=== PATIENT | male | born 1970 | race American Indian/Alaskan Native ===

== ENCOUNTER 2020-05-13 15:35 | Inpatient (IN) | payer MEDICAID ==
--- NOTE | 2020-05-13 17:13 | Event Note ---
ED Screening Note Date of service: 05/13/20 Time: 17:09 ED Screening Note: 50-year-old -Martiniquais male presents to the emergency room stating he has no energy abdominal pain and urinary frequency with dark urine. Patient admits to nausea but no vomiting. Has a history of hypertension currently on no meds. Denies any fever chills. This initial assessment/diagnostic orders/clinical plan/treatment(s) is/are subject to change based on patients health status, clinical progression and re- assessment by fellow clinical providers in the ED. Further treatment and workup at subsequent clinical providers discretion. Patient/guardian urged not to elope from the ED as their condition may be serious if not clinically assessed and managed. Initial orders include:
[2020-05-13 17:37] LABS: Basophils # (Auto) 0.1 K/mm3 (0.0-0.1); Basophils % (Auto) 0.8 % (0.0-1.8); Eosinophils # (Auto) 0.1 K/mm3 (0.0-0.4); Eosinophils % (Auto) 0.9 % (0.0-4.3); Hematocrit 41.8 % (35.5-45.6); Hemoglobin 14.7 gm/dl (11.8-15.2); Lymphocytes # (Auto) 2.1 K/mm3 (1.2-5.4); Lymphocytes % (Auto) 20.2 % (13.4-35.0); Mean Corpuscular HGB Conc 35 % (32-34); Mean Corpuscular Volume 91 fl (84-94); Monocytes # (Auto) 0.6 K/mm3 (0.0-0.8); Monocytes % (Auto) 6.2 % (0.0-7.3); Platelet Count 269 K/mm3 (140-440); Red Blood Count 4.57 M/mm3 (3.65-5.03); Red Cell Distribution Width 14.6 % (13.2-15.2)
[2020-05-13 17:53] LABS: Albumin 4.1 g/dL (3.9-5); Blood Urea Nitrogen 9 mg/dL (9-20); Calcium 9.1 mg/dL (8.4-10.2); Hemolysis Index 346
[2020-05-13 17:55] LABS: BUN/Creatinine Ratio 18
[2020-05-13 17:56] LABS: Alanine Aminotransferase 528 units/L (7-56)
[2020-05-13 18:22] LABS: Amphetamine Screen,Urine Negative; Benzodiazepines Screen,Urine Negative; Cannabinoid Screen,Urine Negative; Cocaine Screen,Urine Negative; Methadone Screen,Urine Negative; Opiate Screen,Urine Negative
[2020-05-13 18:24] LABS: Bilirubin,Urine MOD (Negative); Blood,Urine NEG (Negative); Color,Urine Amber (Yellow); Mucus,Urine 1+ /HPF; Protein,Urine <15 mg/dL mg/dL (Negative); RBC,Urine < 1.0 /HPF (0.0-6.0)
[2020-05-13] MEDS ORDERED: SODIUM CHLORIDE 0.9% 1000 ML 1,000 ML IV ONE (18:25)
--- NOTE | 2020-05-13 18:32 | Emergency Department Report ---
ED Abdominal Pain HPI - General Chief Complaint: Abdominal Pain Stated Complaint: ABD PAIN PUI?: No Time Seen by Provider: 05/13/20 18:30 Source: patient Mode of arrival: Wheelchair Limitations: No Limitations - History of Present Illness Initial Comments: Patient is a 50-year-old male who presents emergency room with generalized abdominal pain. Patient states he is not been feeling well for 2 weeks. He states his pain started 2 weeks ago. Patient dates his pain is worsening. Patient states that his eyes are also turning yellow. Patient states he is fatigued. Patient states he is having frequent urination. Patient states his urine is dark. Patient complains of nausea without vomiting. Patient has a history of high blood pressure but is not on any medications. Patient denies recent foreign travel. Patient denies recent travel. Patient denies recent international travel. Patient denies exposure to the novel coronavirus. Patient denies sick contacts. Patient denies fever and chills. Patient denies cough. Patient denies diarrhea. Patient denies coming in contact with anybody with symptoms of the no susu coronavirus. MD Complaint: abdominal pain -: Sudden Location: diffuse Radiation: none Migration to: no migration Severity: severe Severity scale (0 -10): 10 Quality: stabbing Consistency: constant Improves With: rest Worsens With: movement Associated Symptoms: nausea. denies: vomiting, diarrhea, fever, chills, constipation, hematemesis, hematochezia, melena, hematuria, anorexia, syncope - Related Data Allergies Allergy/AdvReac Type Severity Reaction Status Date / Time No Known Allergies Allergy Verified 05/13/20 16:17 ED Review of Systems ROS: Stated complaint: ABD PAIN Other details as noted in HPI Constitutional: malaise. denies: chills, fever, weakness Eyes: other (Scleral icterus). denies: eye pain, eye discharge, vision change ENT: denies: ear pain, throat pain Respiratory: denies: cough, shortness of breath, wheezing Cardiovascular: denies: chest pain, palpitations Endocrine: no symptoms reported Gastrointestinal: abdominal pain, nausea. denies: vomiting, diarrhea Genitourinary: denies: urgency, dysuria Musculoskeletal: denies: back pain, joint swelling, arthralgia Skin: denies: rash, lesions Neurological: denies: headache, weakness, paresthesias Psychiatric: denies: anxiety, depression Hematological/Lymphatic: denies: easy bleeding, easy bruising ED Past Medical Hx - Past Medical History Previous Medical History?: Yes Hx Hypertension: Yes - Surgical History Past Surgical History?: Yes Additional Surgical History: back surgery - Family History Family history: no significant - Social History Smoking Status: Current Every Day Smoker Substance Use Type: None ED Physical Exam - General Limitations: No Limitations General appearance: alert, in no apparent distress - Head Head exam: Present: atraumatic, normocephalic - Eye Eye exam: Present: PERRL, scleral icterus Pupils: Present: normal accommodation - ENT ENT exam: Present: mucous membranes moist - Neck Neck exam: Present: normal inspection - Respiratory Respiratory exam: Present: normal lung sounds bilaterally. Absent: respiratory distress, wheezes - Cardiovascular Cardiovascular Exam: Present: regular rate, normal rhythm. Absent: systolic murmur, diastolic murmur, rubs, gallop - GI/Abdominal GI/Abdominal exam: Present: soft, tenderness (Generalized tenderness to palpation.), normal bowel sounds - Rectal Rectal exam: Present: deferred - Extremities Exam Extremities exam: Present: normal inspection - Back Exam Back exam: Present: normal inspection - Neurological Exam Neurological exam: Present: alert, oriented X3 - Psychiatric Psychiatric exam: Present: normal affect, normal mood - Skin Skin exam: Present: warm, dry, intact, normal color. Absent: rash ED Course Vital Signs 05/13/20 05/13/20 05/13/20 16:19 19:05 19:15 Temperature 98.8 F Pulse Rate 75 77 76 Respiratory 20 25 H 14 Rate Blood Pressure 148/88 141/82 O2 Sat by Pulse 100 99 100 Oximetry 05/13/20 05/13/20 05/13/20 19:31 19:45 20:01 Temperature Pulse Rate 74 72 67 Respiratory 17 27 H 14 Rate Blood Pressure 140/87 141/90 151/93 O2 Sat by Pulse 99 100 100 Oximetry 05/13/20 05/13/20 05/13/20 20:17 20:31 20:52 Temperature Pulse Rate 72 75 80 Respiratory 20 26 H Rate Blood Pressure 151/93 147/95 O2 Sat by Pulse 100 99 Oximetry 05/13/20 05/13/20 05/13/20 21:01 21:15 21:31 Temperature Pulse Rate 68 68 72 Respiratory 18 19 22 Rate Blood Pressure 158/97 151/98 144/93 O2 Sat by Pulse 100 100 100 Oximetry 05/13/20 05/13/20 05/13/20 21:45 22:01 22:15 Temperature Pulse Rate 72 71 76 Respiratory 21 19 19 Rate Blood Pressure 145/96 148/93 167/53 O2 Sat by Pulse 100 99 100 Oximetry 05/13/20 05/13/20 05/13/20 22:31 22:45 23:01 Temperature Pulse Rate 70 67 69 Respiratory 18 15 21 Rate Blood Pressure 146/85 137/93 135/74 O2 Sat by Pulse 100 100 100 Oximetry 05/13/20 05/13/20 23:15 23:31 Temperature Pulse Rate 74 70 Respiratory 23 23 Rate Blood Pressure 158/97 162/96 O2 Sat by Pulse Oximetry - Reevaluation(s) Reevaluation #1: Patient resting in bed. Patient denies nausea at this time. Patient states he still feels fatigued. Patient's signs patient CT is pending. 05/13/20 19:14 Reevaluation #2: I discussed all results with patient. I discussed plan of care with patient. Patient agrees with plan of care and admission. Patient to be admitted to the hospitalist service. 05/13/20 21:14 - Consultations Consultation #1: I discussed case with Dr. Champion GI. Dr. Champion wants the patient admitted to the hospital service and he will see him in the morning. 05/13/20 21:22 Consultation #2: Hospitalist consulted for admission. Hospitalist to admit patient. 05/13/20 21:28 ED Medical Decision Making - Lab Data Result diagrams: 05/13/20 17:10 05/13/20 17:10 - EKG Data -: EKG Interpreted by Ct EKG shows normal: sinus rhythm, axis, intervals, QRS complexes, ST-T waves Rate: normal - Radiology Data Radiology results: report reviewed CT ABDOMEN AND PELVIS WITH CONTRAST INDICATION / CLINICAL INFORMATION: Elevated bilirubin and LFTs, weakness. TECHNIQUE: Axial CT images were obtained through the abdomen and pelvis after 100 cc Omnipaque [address] scans at this location are performed using CT dose reduction for ALARA by means of automated exposure control. COMPARISON: None available. FINDINGS: LOWER CHEST: No significant abnormality. LIVER: No significant abnormality. GALLBLADDER: Moderately distended with a small amount of sludge versus stones seen along the gallbladder fundus without evidence of acute cholecystitis. BILE DUCTS: There is moderate intrahepatic and extra hepatic biliary ductal dilatation without visualization of a distinct obstructive stone. The common bile duct abruptly terminates along the distal third of its course approximately 1.2 cm from the ampulla. PANCREAS: A pancreatic head mass measures 4.6 x 3.7 cm on image 82 of series 2. There is mild high- grade ductal dilatation. No other significant abnormality. SPLEEN: No significant abnormality. ADRENALS: No significant abnormality. RIGHT KIDNEY / URETER: No significant abnormality. LEFT KIDNEY / URETER: No significant abnormality. STOMACH / SMALL BOWEL: No significant abnormality. COLON: No significant abnormality. APPENDIX: No significant abnormality. PERITONEUM: No free fluid. No free air. No fluid collection. LYMPH NODES: No significant adenopathy. AORTA / ARTERIES: There is mild generalized atherosclerosis without other significant abnormalities. IVC / VEINS: No significant abnormality. URINARY BLADDER: No significant abnormality. REPRODUCTIVE ORGANS: No significant abnormality. ADDITIONAL FINDINGS: None. SKELETAL SYSTEM: No acute abnormality. Mild degenerative changes are seen along the spine. IMPRESSION: 1. Pancreatic head mass with secondary moderate biliary obstruction. Pancreatic adenocarcinoma is suspected until proven otherwise. 2. Additional findings as above. - Medical Decision Making Patient is a 50-year-old male that presents emergency room with abdominal pain and fatigue and nausea without vomiting and scleral icterus. Patient says been going on for 2 weeks. Patient symptoms worsening. Patient had labs done which showed strongly abnormal bili and LFTs. Patient also found to have hyperkalemia. Patient given hyperkalemia protocol to include calcium, insulin, D50, fluids, Kayexalate. Patient had EKG which was within normal limits and no acute findings and no ST changes or T wave changes. I reviewed the EKG personally. Patient had a CT scan of the abdomen and it showed a pancreatic mass that was obstructing the common bile duct. I discussed the case with GI and GI recommends admission to the hospital service. Patient notified consistent with hyperkalemia, abnormal LFTs, obstructive hyperbilirubinemia, pancreatic mass possibly secondary to a pancreatic adenocarcinoma, abdominal pain, nausea alone. Patient admitted to the hospital service for further evaluation treatment. Critical care time documented due to the multiple reassessments, prolonged time at the bedside, interpretation of diagnostics and labs and discussion with specialist. - Differential Diagnosis Obstructive jaundice, biliary stone, abdominal pain, dehydration Critical Care Time: Yes Critical care time in (mins) excluding proc time.: 35 Critical care attestation.: If time is entered above; I have spent that time in minutes in the direct care of this critically ill patient, excluding procedure time. Critical Care Time: 35 minutes Critical care time documented due to the multiple reassessments, prolonged time at the bedside, interpretation of diagnostics and labs and consultations with specialist. ED Disposition Clinical Impression: Scleral icterus, Nausea alone, Hyperbilirubinemia, Abnormal LFTs, Hyperkalemia, Obstructive jaundice, Pancreatic mass Abdominal pain Qualifiers: Abdominal location: generalized Qualified Code(s): R10.84 - Generalized abdominal pain Fatigue Qualifiers: Fatigue type: unspecified Qualified Code(s): R53.83 - Other fatigue Disposition: DC-09 OP ADMIT IP TO THIS HOSP Is pt being admited?: Yes Does the pt Need Aspirin: No Condition: Critical Time of Disposition: 21:27
[2020-05-13 18:38] LABS: Ictotest,Urine Positive (Negative)
[2020-05-13] MEDS ORDERED: CALCIUM CHLORIDE 1,000 MG/10 ML SDV IVP ONE (18:40)
[2020-05-13] MEDS ORDERED: INSULIN REGULAR, HUMAN 100 UNITS/1 ML IV ONE (18:40)
[2020-05-13] MEDS ORDERED: DEXTROSE 50% IN WATER (25GM) 50 ML SYRINGE IV ONE (18:40)
[2020-05-13] MEDS ORDERED: SODIUM POLYSTYRENE 15 GM/60 ML ORAL LIQD PO ONE (18:40)
[2020-05-13] MEDS ORDERED: CALCIUM CHLORIDE 1,000 MG in SODIUM CHLORIDE 0.9% 100 ML IV ONE (19:00)
[2020-05-13 19:01] LABS: Albumin 4.2 g/dL (3.9-5); Bilirubin,Direct 7.6 mg/dL (0-0.2)
[2020-05-13 20:12] LABS: Hepatitis B Surface Antigen Non-Reactive (Negative); Hepatitis C Virus Antibody Non-Reactive (NonReactive)
--- NOTE | 2020-05-13 20:53 | Cat Scan Report ---
CT ABDOMEN AND PELVIS WITH CONTRAST INDICATION / CLINICAL INFORMATION: Elevated bilirubin and LFTs, weakness. TECHNIQUE: Axial CT images were obtained through the abdomen and pelvis after 100 cc Omnipaque [address] scans at this location are performed using CT dose reduction for ALARA by means of automated exposure control. COMPARISON: None available. FINDINGS: LOWER CHEST: No significant abnormality. LIVER: No significant abnormality. GALLBLADDER: Moderately distended with a small amount of sludge versus stones seen along the gallblad muna fundus without evidence of acute cholecystitis. BILE DUCTS: There is moderate intrahepatic and extra hepatic biliary ductal dilatation without visual ization of a distinct obstructive stone. The common bile duct abruptly terminates along the distal th ird of its course approximately 1.2 cm from the ampulla. PANCREAS: A pancreatic head mass measures 4.6 x 3.7 cm on image 82 of series 2. There is mild high-gr joesph ductal dilatation. No other significant abnormality. SPLEEN: No significant abnormality. ADRENALS: No significant abnormality. RIGHT KIDNEY / URETER: No significant abnormality. LEFT KIDNEY / URETER: No significant abnormality. STOMACH / SMALL BOWEL: No significant abnormality. COLON: No significant abnormality. APPENDIX: No significant abnormality. PERITONEUM: No free fluid. No free air. No fluid collection. LYMPH NODES: No significant adenopathy. AORTA / ARTERIES: There is mild generalized atherosclerosis without other significant abnormalities. IVC / VEINS: No significant abnormality. URINARY BLADDER: No significant abnormality. REPRODUCTIVE ORGANS: No significant abnormality. ADDITIONAL FINDINGS: None. SKELETAL SYSTEM: No acute abnormality. Mild degenerative changes are seen along the spine. IMPRESSION: 1. Pancreatic head mass with secondary moderate biliary obstruction. Pancreatic adenocarcinoma is tc pected until proven otherwise. 2. Additional findings as above. Signer Name: Tito Wolfe MD Signed: 05/13/2020 8:48 PM Workstation Name: [id number]
[2020-05-13] MEDS ORDERED: ACETAMINOPHEN 325 MG TAB PO PRN (22:22)
[2020-05-13] MEDS ORDERED: MAGNESIUM HYDROXIDE (MOM) ORAL LIQD UDC PO PRN (22:22)
--- NOTE | 2020-05-13 22:31 | History and Physical Report ---
History of Present Illness Date of examination: 05/13/20 Date of admission: 05/13/20 21:39 Chief complaint: Yellowness of the eyes Abdominal pain History of present illness: 50-year-old male with significant history of hypertension presenting to the emergency room today complaining of generalized abdominal pain. Symptoms has been ongoing for about 2 weeks. He denies any fever or chills. He has had some nausea but no vomiting. No diarrhea or constipation. He has had frequent urination but denies any dysuria or hematuria. He however indicates that his urine has been darker in color. Patient denies any sick contacts and no recent travel. Denies any contact with anyone with COVID-19. Work-up in the emergency room today reveals elevated liver enzymes, h yperbilirubinemia and hyperkalemia on the lab test. CT of the abdomen and pelvis reveals:1. Pancreatic head mass with secondary moderate biliary obstruction. Pancreatic adenocarcinoma is suspected until proven otherwise. Pick Up Operator has been consulted by the ER physician. Patient be admitted with abdominal pain with underlying pancreatic mass with jaundice. Past History Past Medical History: hypertension Past Surgical History: Other (Back surgery in the past) Social history: smoking (Current daily smoker. Smokes about a pack of cigarette daily), alcohol abuse (Drinks alcohol occasionally) Family history: no significant family history Medications and Allergies Allergies Allergy/AdvReac Type Severity Reaction Status Date / Time No Known Allergies Allergy Verified 05/13/20 16:17 Active Meds: Active Medications Acetaminophen (Acetaminophen 325 Mg Tab) 650 mg PO Q4H PRN PRN Reason: Pain MILD(1-3)/Fever >100.5/LORA Ondansetron HCl (Ondansetron 4 Mg/2 Ml Inj) 4 mg IV Q8H PRN PRN Reason: Nausea And Vomiting Sodium Chloride (Sodium Chloride 0.9% 10 Ml Flush Syringe) 10 ml IV BID ALEX Review of Systems Constitutional: no weight loss, no weight gain, no fever, no night sweats, no fatigue, no weakness, no malaise Ears, nose, mouth and throat: no nasal congestion, no sore throat Cardiovascular: no chest pain, no palpitations Respiratory: no cough, no shortness of breath Gastrointestinal: abdominal pain, nausea, jaundice, no vomiting, no diarrhea, no change in bowel habits, no loss of appetite, no early satiety Genitourinary Male: urinary frequency, other (Dark-colored urine), no dysuria, no hematuria, no nocturia Musculoskeletal: no neck pain, no low back pain Integumentary: no rash, no pruritis Neurological: no headaches, no confusion Psychiatric: no anxiety, no depression Exam - Constitutional Vitals: Temp Pulse Resp BP Pulse Ox 98.8 F 72 21 145/96 100 05/13/20 16:19 05/13/20 21:45 05/13/20 21:45 05/13/20 21:45 05/13/20 21:45 General appearance: Present: no acute distress, well-nourished - EENT Eyes: Present: PERRL, EOM intact, scleral icterus ENT: hearing intact, clear oral mucosa, dentition normal - Neck Neck: Present: supple, normal ROM - Respiratory Respiratory effort: normal Respiratory: bilateral: CTA - Cardiovascular Rhythm: regular Heart Sounds: Present: S1 & S2. Absent: gallop, systolic murmur, diastolic murmur, rub - Extremities Extremities: no ischemia, pulses intact, pulses symmetrical, No edema, normal temperature, normal color, Full ROM Peripheral Pulses: within normal limits - Abdominal General gastrointestinal: Present: soft, tender (Right upper and right lower quadrant tenderness, no guarding, no rebound tenderness.), non-distended, normal bowel sounds. Absent: mass - Integumentary Integumentary: Present: clear, warm, dry, normal turgor. Absent: rash - Musculoskeletal Musculoskeletal: strength equal bilaterally - Psychiatric Psychiatric: appropriate mood/affect, intact judgment & insight, memory intact, cooperative - Neurologic Neurologic: CNII-XII intact, no focal deficits, moves all extremities Results - Labs CBC & Chem 7: 05/13/20 17:10 05/13/20 17:10 Labs: Abnormal lab results 05/13/20 05/13/20 05/13/20 Range/Units 17:10 17:10 18:40 MCHC 35 H (32-34) % Seg Neutrophils % 71.9 H (40.0-70.0) % Sodium 129 L (137-145) mmol/L Potassium 6.0 H (3.6-5.0) mmol/L Chloride 97.0 L (98-107) mmol/L Creatinine 0.5 L (0.8-1.3) mg/dL Glucose 109 H (75-100) mg/dL Total Bilirubin 13.60 H 13.20 H (0.1-1.2) mg/dL Direct Bilirubin 7.6 H (0-0.2) mg/dL AST 221 H 218 H (5-40) units/L ALT 528 H 502 H (7-56) units/L Alkaline Phosphatase 358 H 360 H (35-129) units/L Total Creatine Kinase 342 H (55-170) units/L Assessment and Plan - Patient Problems (1) Abdominal pain Current Visit: Yes Status: Acute Qualifiers: Abdominal location: generalized Qualified Code(s): R10.84 - Generalized abdominal pain Plan to address problem: Possibly secondary to pancreatic mass. Patient commenced on IV analgesic medication. He will be made n.p.o. (2) Abnormal LFTs Current Visit: Yes Status: Acute Plan to address problem: Possibly secondary to obstruction by the pancreatic mass. Will monitor liver enzymes. (3) Hyperbilirubinemia Current Visit: Yes Status: Acute Plan to address problem: Secondary to the underlying obstruction by the pancreatic mass. We will continue to monitor bilirubin level. We await further evaluation by gastroenterology. (4) Hyperkalemia Current Visit: Yes Status: Acute Plan to address problem: Patient has been given insulin and glucose, calcium gluconate, Kayexalate. Will monitor potassium level and will also monitor EKG. (5) Obstructive jaundice Current Visit: Yes Status: Acute Plan to address problem: Secondary to the pancreatic mass. (6) DVT prophylaxis Current Visit: Yes Status: Acute Plan to address problem: Patient placed on sequential compression device. (7) Full code status Current Visit: Yes Status: Acute Plan to address problem: Patient is a full code.
[2020-05-14] MEDS: MORPHINE 2 MG/1 ML INJ IV PRN ×2 (01:20→20:40)
[2020-05-14] MEDS: SODIUM CHLORIDE 0.9% 1000 ML 1,000 ML IV SCH (01:21)
[2020-05-14 05:52] LABS: Basophils % (Auto) 0.4 % (0.0-1.8); Eosinophils # (Auto) 0.1 K/mm3 (0.0-0.4); Eosinophils % (Auto) 0.8 % (0.0-4.3); Hematocrit 36.6 % (35.5-45.6); Hemoglobin 12.8 gm/dl (11.8-15.2); Lymphocytes # (Auto) 1.8 K/mm3 (1.2-5.4); Lymphocytes % (Auto) 26.8 % (13.4-35.0); Mean Corpuscular HGB Conc 35 % (32-34); Mean Corpuscular Volume 91 fl (84-94); Monocytes # (Auto) 0.5 K/mm3 (0.0-0.8); Monocytes % (Auto) 8.2 % (0.0-7.3); Platelet Count 223 K/mm3 (140-440); Red Blood Count 4.02 M/mm3 (3.65-5.03); Red Cell Distribution Width 14.6 % (13.2-15.2)
[2020-05-14 06:06] LABS: INR 1.02 (0.87-1.13)
[2020-05-14 06:09] LABS: Blood Urea Nitrogen 7 mg/dL (9-20); Calcium 8.5 mg/dL (8.4-10.2); Hemolysis Index 0
[2020-05-14 06:11] LABS: Albumin 3.4 g/dL (3.9-5)
[2020-05-14 06:20] LABS: BUN/Creatinine Ratio 14
[2020-05-14] MEDS: ONDANSETRON 4 MG/2 ML INJ IV PRN (10:21)
--- NOTE | 2020-05-14 13:49 | Progress Note ---
Assessment and Plan Assessment and Plan - Patient Problems (1) Pancreatic mass Current Visit: Yes Status: Acute Qualifiers: Abdominal location: generalized Qualified Code(s): R10.84 - Generalized abdominal pain Plan to address problem: Possibly secondary to pancreatic mass. Patient commenced on IV analgesic medication. He will be made n.p.o. (2) Abnormal LFTs Current Visit: Yes Status: Acute Plan to address problem: Possibly secondary to obstruction by the pancreatic mass. Will monitor liver enzymes. (3) Hyperbilirubinemia Current Visit: Yes Status: Acute Plan to address problem: Secondary to the underlying obstruction by the pancreatic mass. We will continue to monitor bilirubin level. We await further evaluation by gastroenterology. (4) Hyperkalemia Current Visit: Yes Status: Acute Plan to address problem: Patient has been given insulin and glucose, calcium gluconate, Kayexalate. Will monitor potassium level and will also monitor EKG. (5) Obstructive jaundice Current Visit: Yes Status: Acute Plan to address problem: Secondary to the pancreatic mass. (6) DVT prophylaxis Current Visit: Yes Status: Acute Plan to address problem: Patient placed on sequential compression device. (7) Full code status Current Visit: Yes Status: Acute Plan to address problem: Patient is a full code. Subjective Date of service: 05/14/20 Principal diagnosis: Pancreatic mass, obstructive jaundice Interval history: 50-year-old male with significant history of hypertension presenting to the em ergency room today complaining of generalized abdominal pain. Symptoms has been ongoing for about 2 weeks. He denies any fever or chills. He has had some nausea but no vomiting. No diarrhea or constipation. He has had frequent urination but denies any dysuria or hematuria. He however indicates that his urine has been darker in color. Patient denies any sick contacts and no recent travel. Denies any contact with anyone with COVID-19. Work-up in the emergency room today reveals elevated liver enzymes, hyperbilirubinemia and hyperkalemia on the lab test. CT of the abdomen and pelvis reveals:1. Pancreatic head mass with secondary moderate biliary obstruction. Pancreatic adenocarcinoma is suspected until proven otherwise. Wirer Helper has been consulted by the ER physician. Patient be admitted with abdominal pain with underlying pancreatic mass with jaundice. Day #2 Pancreatic mass Obstructive jaundice GI consult Objective - Constitutional Vitals: Vital Signs - 12hr 05/14/20 04:59 Temperature 99.1 F Pulse Rate 66 Respiratory 20 Rate Blood Pressure 121/77 O2 Sat by Pulse 97 Oximetry General appearance: Present: no acute distress, well-nourished - EENT Eyes: PERRL, EOM intact ENT: hearing intact, clear oral mucosa Ears: bilateral: normal - Neck Neck: supple, normal ROM - Respiratory Respiratory effort: normal Respiratory: bilateral: CTA - Breasts Breasts: normal - Cardiovascular Heart rate: 78 Rhythm: regular Heart Sounds: Present: S1 & S2. Absent: gallop, rub Extremities: pulses intact, No edema, normal color, Full ROM - Gastrointestinal General gastrointestinal: Present: soft, non-tender, non-distended, normal bowel sounds - Genitourinary Male genitourinary: normal - Integumentary Integumentary: clear, warm, dry - Musculoskeletal Musculoskeletal: 1, strength equal bilaterally - Neurologic Neurologic: moves all extremities - Psychiatric Psychiatric: memory intact, appropriate mood/affect, intact judgment & insight - Labs CBC & Chem 7: 05/16/20 06:00 05/16/20 06:00 Labs: Abnormal lab results 05/13/20 05/13/20 05/13/20 Range/Units 17:10 17:10 18:40 MCHC 35 H (32-34) % Sandoval % (Auto) (0.0-7.3) % Seg Neutrophils % 71.9 H (40.0-70.0) % Sodium 129 L (137-145) mmol/L Potassium 6.0 H (3.6-5.0) mmol/L Chloride 97.0 L (98-107) mmol/L BUN (9-20) mg/dL Creatinine 0.5 L (0.8-1.3) mg/dL Glucose 109 H (75-100) mg/dL Total Bilirubin 13.60 H 13.20 H (0.1-1.2) mg/dL Direct Bilirubin 7.6 H (0-0.2) mg/dL AST 221 H 218 H (5-40) units/L ALT 528 H 502 H (7-56) units/L Alkaline Phosphatase 358 H 360 H (35-129) units/L Total Creatine Kinase 342 H (55-170) units/L Albumin (3.9-5) g/dL 03/06/21 03/06/21 03/06/21 Range/Units 04:48 04:48 04:48 MCHC 35 H (32-34) % Sandoval % (Auto) 8.2 H (0.0-7.3) % Seg Neutrophils % (40.0-70.0) % Sodium 136 L D (137-145) mmol/L Potassium (3.6-5.0) mmol/L Chloride (98-107) mmol/L BUN 7 L (9-20) mg/dL Creatinine 0.5 L (0.8-1.3) mg/dL Glucose 107 H (75-100) mg/dL Total Bilirubin 10.80 H (0.1-1.2) mg/dL Direct Bilirubin 8.0 H (0-0.2) mg/dL AST 161 H (5-40) units/L ALT 400 H (7-56) units/L Alkaline Phosphatase 293 H (35-129) units/L Total Creatine Kinase (55-170) units/L Albumin 3.4 L (3.9-5) g/dL
--- NOTE | 2020-05-14 16:18 | Consultation ---
History of Present Illness - Reason for Consult Consult date: 05/14/20 Obstructive jaundice Requesting physician: RHINA MAYA - History of Present Illness 50 yo BM on whom I am requested to consult by Dr. Maya for obstructive jaundice with a pancreatic head mass noted on CT. Pt notes 2 wk hx of abd discomfort with epigastric and bilateral pain, 5 day hx of jaundice, and 3 day hx of MARILEE. No N/V, F/C/NS. States he lost 10# over the last month. No known hx of liver disease. He smokes 1 ppd since age 15. No family hx of pancreatic cancer. No CP or SOB. Meds reviewed. Past History Past Medical History: hypertension Past Surgical History: Other (Back and neck surgery in the past) Social history: smoking (Current daily smoker. 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 States he was approved for Disability 05/10/20.) Family history: no significant family history Medications and Allergies Allergies Allergy/AdvReac Type Severity Reaction Status Date / Time No Known Allergies Allergy Verified 05/13/20 16:17 Active Meds: Active Medications Acetaminophen (Acetaminophen 325 Mg Tab) 650 mg PO Q4H PRN PRN Reason: Pain MILD(1-3)/Fever >100.5/LORA Sodium Chloride (Nacl 0.9% 1000 Ml) 1,000 mls @ 125 mls/hr IV DIRECT ALEX Last Admin: 05/14/20 01:21 Dose: 125 mls/hr Documented by: Magnesium Hydroxide (Magnesium Hydroxide (Mom) Oral Liqd Udc) 30 ml PO Q4H PRN PRN Reason: Constipation Morphine Sulfate (Morphine 2 Mg/1 Ml Inj) 2 mg IV Q4H PRN PRN Reason: Pain, Moderate (4-6) Last Admin: 05/14/20 01:20 Dose: 2 mg Documented by: Ondansetron HCl (Ondansetron 4 Mg/2 Ml Inj) 4 mg IV Q8H PRN PRN Reason: Nausea And Vomiting Last Admin: 05/14/20 10:21 Dose: 4 mg Documented by: Sodium Chloride (Sodium Chloride 0.9% 10 Ml Flush Syringe) 10 ml IV BID ALEX Last Admin: 05/14/20 14:12 Dose: 10 ml Documented by: Sodium Chloride (Sodium Chloride 0.9% 10 Ml Flush Syringe) 10 ml IV PRN PRN PRN Reason: LINE FLUSH Review of Systems All systems: negative (as noted in HPI) Exam - Constitutional Vitals: Temp Pulse Resp BP Pulse Ox 98.5 F 65 22 126/84 98 05/14/20 11:58 05/14/20 11:58 05/14/20 11:58 05/14/20 11:58 05/14/20 11:58 General appearance: Present: no acute distress - EENT Eyes: Present: PERRL, EOM intact, scleral icterus ENT: hearing intact - Respiratory Respiratory effort: normal Respiratory: bilateral: CTA - Cardiovascular Rhythm: regular Heart Sounds: Present: S1 & S2 - Extremities Extremities: No edema - Abdominal General gastrointestinal: Present: soft, tender (Mild epigastric) Results - Labs CBC & Chem 7: 05/14/20 04:48 05/14/20 04:48 Labs: Abnormal lab results 05/13/20 05/13/20 05/13/20 Range/Units 17:10 17:10 18:40 MCHC 35 H (32-34) % Dukes % (Auto) (0.0-7.3) % Seg Neutrophils % 71.9 H (40.0-70.0) % Sodium 129 L (137-145) mmol/L Potassium 6.0 H (3.6-5.0) mmol/L Chloride 97.0 L (98-107) mmol/L BUN (9-20) mg/dL Creatinine 0.5 L (0.8-1.3) mg/dL Glucose 109 H (75-100) mg/dL Total Bilirubin 13.60 H 13.20 H (0.1-1.2) mg/dL Direct Bilirubin 7.6 H (0-0.2) mg/dL AST 221 H 218 H (5-40) units/L ALT 528 H 502 H (7-56) units/L Alkaline Phosphatase 358 H 360 H (35-129) units/L Total Creatine Kinase 342 H (55-170) units/L Albumin (3.9-5) g/dL 05/14/20 05/14/20 05/14/20 Range/Units 04:48 04:48 04:48 MCHC 35 H (32-34) % Dukes % (Auto) 8.2 H (0.0-7.3) % Seg Neutrophils % (40.0-70.0) % Sodium 136 L D (137-145) mmol/L Potassium (3.6-5.0) mmol/L Chloride (98-107) mmol/L BUN 7 L (9-20) mg/dL Creatinine 0.5 L (0.8-1.3) mg/dL Glucose 107 H (75-100) mg/dL Total Bilirubin 10.80 H (0.1-1.2) mg/dL Direct Bilirubin 8.0 H (0-0.2) mg/dL AST 161 H (5-40) units/L ALT 400 H (7-56) units/L Alkaline Phosphatase 293 H (35-129) units/L Total Creatine Kinase (55-170) units/L Albumin 3.4 L (3.9-5) g/dL - Imaging and Cardiology CT scan - abdomen: report reviewed (4.6x3.7 cm mass in HOP with proximal biliary dilation) Assessment and Plan 1. Pancreatic head mass with obstructive jaundice - c/w pancreatic neoplasm. Discussed extensively with pt. - will check CA19-9 - ERCP with stenting on 05/16/20 - then, referral for EUS and possible Whipple if appropriate, based on biopsies
[2020-05-15] MEDS: ONDANSETRON 4 MG/2 ML INJ IV PRN ×4 (03:13→21:18)
[2020-05-15] MEDS: SODIUM CHLORIDE 0.9% 1000 ML 1,000 ML IV SCH (09:16)
[2020-05-15] MEDS: MORPHINE 2 MG/1 ML INJ IV PRN ×2 (09:16→12:32)
--- NOTE | 2020-05-15 11:31 | Progress Note ---
Assessment and Plan 1. Pancreatic head mass with obstructive jaundice - c/w pancreatic neoplasm. Stable. Previously discussed extensively with pt. - will check CA19-9 - ERCP with stenting on 05/16/20 - then, referral for EUS and possible Whipple if appropriate, based on biopsies Subjective Date of service: 05/15/20 Interval history: Pt doing well. Has mild nausea. No significant pain. Objective - Constitutional Vitals: Vital Signs - 12hr 05/14/20 05/15/20 05/15/20 23:34 05:27 08:24 Temperature 98.0 F 98.0 F Pulse Rate 66 62 Respiratory 18 18 Rate Blood Pressure 137/85 123/83 O2 Sat by Pulse 97 97 99 Oximetry General appearance: Present: no acute distress - EENT Eyes: PERRL, EOM intact, scleral icterus ENT: hearing intact - Respiratory Respiratory effort: normal - Gastrointestinal General gastrointestinal: Present: soft, tender (Mild) - Labs CBC & Chem 7: 05/14/20 04:48 05/14/20 04:48 Medications & Allergies - Medications Allergies/Adverse Reactions: Allergies No Known Allergies Allergy (Verified 05/13/20 16:17) Active Medications: Generic Name Dose Route Start Last Admin Trade Name Freq PRN Reason Stop Dose Admin Acetaminophen 650 mg 05/13/20 22:22 Acetaminophen 325 Mg Tab PO Q4H PRN Pain MILD(1-3)/Fever >100.5/LORA Sodium Chloride 1,000 mls @ 125 mls/hr 05/13/20 22:30 05/15/20 09:16 Nacl 0.9% 1000 Ml IV 125 mls/hr DIRECT ALEX Administration Magnesium Hydroxide 30 ml 05/13/20 22:22 Magnesium Hydroxide (Mom) Oral Liqd Udc PO Q4H PRN Constipation Morphine Sulfate 2 mg 05/13/20 22:22 05/15/20 09:16 Morphine 2 Mg/1 Ml Inj IV 2 mg Q4H PRN Administration Pain, Moderate (4-6) Ondansetron HCl 4 mg 05/13/20 22:22 05/15/20 03:13 Ondansetron 4 Mg/2 Ml Inj IV 4 mg Q8H PRN Administration Nausea And Vomiting Sodium Chloride 10 ml 05/14/20 10:00 05/14/20 21:20 Sodium Chloride 0.9% 10 Ml Flush Syringe IV 10 ml BID ALEX Administration Sodium Chloride 10 ml 05/13/20 22:22 Sodium Chloride 0.9% 10 Ml Flush Syringe IV PRN PRN LINE FLUSH
--- NOTE | 2020-05-15 13:35 | Progress Note ---
Assessment and Plan Assessment and Plan - Patient Problems (1) Obstructive jaundice Current Visit: Yes Status: Acute Plan to address problem: Secondary to the pancreatic mass. ERCP tomorrow if Covid test is negative (2) Abnormal LFTs Current Visit: Yes Status: Acute Plan to address problem: Possibly secondary to obstruction by the pancreatic mass. Will monitor liver enzymes. (3) Hyperbilirubinemia Current Visit: Yes Status: Acute Plan to address problem: Secondary to the underlying obstruction by the pancreatic mass. We will continue to monitor bilirubin level. We await further evaluation by gastroenterology. (4) Hyperkalemia Current Visit: Yes Status: Acute Plan to address problem: Patient has been given insulin and glucose, calcium gluconate, Kayexalate. Will monitor potassium level and will also monitor EKG. (5) DVT prophylaxis Current Visit: Yes Status: Acute Plan to address problem: Patient placed on sequential compression device. (6) Full code status Current Visit: Yes Status: Acute Plan to address problem: Patient is a full code. Subjective Date of service: 05/15/20 Principal diagnosis: Obstructive jaundice, pancreatic mass Interval history: 50-year-old male with significant history of hypertension presenting to the emergency room today complaining of generalized abdominal pain. Symptoms has been ongoing for about 2 weeks. He denies any fever or chills. He has had some nausea but no vomiting. No diarrhea or constipation. He has had frequent urination but denies any dysuria or hematuria. He however indicates that his urine has been darker in color. Patient denies any sick contacts and no recent travel. Denies any contact with anyone with COVID-19. Work-up in the emergency room today reveals elevated liver enzymes, hyperbilirubinemia and hyperkalemia on the lab test. CT of the abdomen and pelvis reveals:1. Pancreatic head mass with secondary mode rate biliary obstruction. Pancreatic adenocarcinoma is suspected until proven otherwise. Toggler has been consulted by the ER physician. Patient be admitted with abdominal pain with underlying pancreatic mass with jaundice. 05/15/2020 Patient for ERCP on 05/16/2020 to relieve obstructive jaundice Objective - Constitutional Vitals: Vital Signs - 12hr 05/15/20 05/15/20 05:27 08:24 Temperature 98.0 F Pulse Rate 62 Respiratory 18 Rate Blood Pressure 123/83 O2 Sat by Pulse 97 99 Oximetry General appearance: Present: no acute distress, well-nourished - EENT Eyes: PERRL, EOM intact, scleral icterus ENT: hearing intact, clear oral mucosa Ears: bilateral: normal - Neck Neck: supple, normal ROM - Respiratory Respiratory effort: normal Respiratory: bilateral: CTA - Breasts Breasts: normal - Cardiovascular Rhythm: regular Heart Sounds: Present: S1 & S2. Absent: gallop, rub Extremities: pulses intact, No edema, normal color, Full ROM - Gastrointestinal General gastrointestinal: Present: soft, non-tender, non-distended, normal bowel sounds - Genitourinary Male genitourinary: normal - Integumentary Integumentary: clear, warm, dry - Musculoskeletal Musculoskeletal: 1, strength equal bilaterally - Neurologic Neurologic: moves all extremities - Psychiatric Psychiatric: memory intact, appropriate mood/affect, intact judgment & insight - Labs CBC & Chem 7: 05/16/20 06:00 05/16/20 06:00
[2020-05-15] MEDS: HYDROmorphone 1 MG/1 ML INJ IV PRN ×2 (16:05→21:17)
[2020-05-16] MEDS: SODIUM CHLORIDE 0.9% 1000 ML 1,000 ML IV SCH ×3 (01:46→20:37)
[2020-05-16 06:25] LABS: Eosinophils % (Auto) 1.6 % (0.0-4.3); Hematocrit 35.2 % (35.5-45.6); Hemoglobin 12.3 gm/dl (11.8-15.2); Lymphocytes % (Auto) 25.8 % (13.4-35.0); Mean Corpuscular HGB Conc 35 % (32-34); Mean Corpuscular Volume 90 fl (84-94); Monocytes % (Auto) 7.2 % (0.0-7.3); Platelet Count 228 K/mm3 (140-440); Red Cell Distribution Width 15.3 % (13.2-15.2)
[2020-05-16 06:26] LABS: Basophils % (Auto) 0.3 % (0.0-1.8); Eosinophils # (Auto) 0.1 K/mm3 (0.0-0.4); Monocytes # (Auto) 0.3 K/mm3 (0.0-0.8)
[2020-05-16 06:45] LABS: Alanine Aminotransferase 316 units/L (7-56); Albumin 3.3 g/dL (3.9-5); Blood Urea Nitrogen 7 mg/dL (9-20); Calcium 8.5 mg/dL (8.4-10.2); Hemolysis Index 0
[2020-05-16 06:47] LABS: BUN/Creatinine Ratio 10
--- NOTE | 2020-05-16 10:44 | Anesthesia Day of Surgery ---
Anesthesia Day of Surgery - Day of Surgery Patient Examined: Yes Patient H&P Reviewed: Yes Patient is NPO: Yes
--- NOTE | 2020-05-16 10:46 | Anesthesia Consultation ---
Anesthesia Consult and Med Hx Date of service: 05/16/20 - Airway Anesthetic Teeth Evaluation: Chipped, Crowns ROM Head & Neck: Adequate Mental/Hyoid Distance: Adequate Mallampati Class: Class II Intubation Access Assessment: Good - Pre-Operative Health Status ASA Pre-Surgery Classification: ASA3 Proposed Anesthetic Plan: MAC - Pulmonary Hx Smoking: Yes Hx Asthma: No Hx Respiratory Symptoms: No (+2FS) COPD: No Hx Pneumonia: No - Cardiovascular System Hx Hypertension: Yes - Gastrointestinal Hx Gastroesophageal Reflux Disease: No (Pancreatic mass-obstructing) - Endocrine Hx End Stage Renal Disease: No Hx Liver Disease: Yes (From obstruction) Hx Non-Insulin Dependent Diabetes: Yes - Hematic Hx Sickle Cell Disease: No - Other Systems Hx Alcohol Use: Yes
[2020-05-16] MEDS ORDERED: LIDOCAINE MPF (2%) 20 MG/1 ML VIAL 5 ML ONE (11:35)
[2020-05-16] MEDS ORDERED: ONDANSETRON 4 MG/2 ML INJ ONE (11:35)
[2020-05-16] MEDS ORDERED: propofoL 200 MG/20 ML VIAL IV ONE ×3 (11:35→12:45)
[2020-05-16] MEDS ORDERED: HYDROmorphone 1 MG/1 ML INJ ONE (11:35)
[2020-05-16] MEDS ORDERED: SODIUM CHLORIDE 0.9% 100 ML ONE (11:56)
[2020-05-16] MEDS ORDERED: SODIUM CHLORIDE 0.9% 1000 ML 1,000 ML IV SCH (12:00)
[2020-05-16] MEDS ORDERED: KETAMINE/STERILE WATER 50 MG/ML SYRINGE ONE (12:45)
--- NOTE | 2020-05-16 13:10 | Post Operative Note ---
Pre-op diagnosis: Obstructive jaudice, pancreatic head mass Post-op diagnosis: other (Biliary and pancreatic duct stricture in HOP, with proximal dilation of CBD.) Findings: 1. ~ 2-3 cm stricture of intrapancreatic CBD with proximal dilation. Sphinctertomy done and 10Fr, 5cm biliary stent placed. 2. Stricture in pancreatic duct in HOP, with normal duct in body. 3. Normal major papilla. Procedure: ERCP with sphincterotomy and stent placement Anesthesia: MAC Surgeon: ANJALI CHISHOLM Estimated blood loss: minimal Pathology: none Condition: stable Disposition: floor (If stable, can discharge home with outpatient Oncology follow up and GI follow up. No ASA/NSAIDs x 2 wks.)
--- NOTE | 2020-05-16 13:20 | Operative Report ---
PROCEDURE: ERCP with sphincterotomy and stent placement. SEDATION: MAC by Anesthesia. PREOPERATIVE DIAGNOSIS: Obstructive jaundice and pancreatic head mass. POSTOPERATIVE DIAGNOSIS: Obstructive jaundice and pancreatic head mass. SEDATION: MAC by Anesthesia. HISTORY: The patient is a 50-year-old man, who comes in with a 2-week history of abdominal discomfort and a 5-day history of jaundice. CT shows mass in the head of the pancreas with biliary obstruction. DESCRIPTION OF PROCEDURE: Indications, risks, and benefits were explained and consent was obtained. The patient was placed in left lateral decubitus position and sedated. Endoscope was passed through the mouth and oropharynx into the descending duodenum. Selective cannulation of the pancreatic duct and then of the bile duct was achieved using the fusion sphincterotome and guidewire. FINDINGS: 1. Normal appearing major papilla. 2. Pancreatic duct shows stricturing in the head of the pancreas with normal duct starting from the neck through the body. 3. A 2-3 cm biliary stricture in the intrapancreatic portion of the common bile duct with proximal duct dilation to approximately 12 mm. An 8 mm sphincterotomy was performed. A 10-Setswana 5 cm long biliary stent was then placed across the stricture in good position with good bile flow noted. The patient tolerated the procedure well without immediate complications. ESTIMATED BLOOD LOSS: Minimal. IMPRESSION: 1. Pancreatic head mass with stricturing of the common bile duct and the pancreatic duct, consistent with extrinsic compression. 2. Sphincterotomy done and stent placed. RECOMMENDATIONS: 1. Monitor for complications. 4. Follow up on CA 19-9 level. 5. The patient will need referral to Surgical Oncology for endoscopic ultrasound for staging and subsequent chemotherapy if appropriate and hopefully a Whipple resection. JOB# [id number] HRC/NTS
[2020-05-16] MEDS: ONDANSETRON 4 MG/2 ML INJ IV PRN ×2 (14:25→20:12)
--- NOTE | 2020-05-16 14:25 | Fluoroscopy Report ---
ERCP biliary pancreatic ducts HISTORY: Obstructive jaundice COMPARISON: CT abdomen pelvis performed 05/13/2020. IMPRESSION: 1.6 minutes of fluoroscopy time was provided by radiology during ERCP by gastroenterology . 5 fluoroscopic images are presented demonstrating placement of a common bile duct stent. Please cor relate with the procedural report as needed. Signer Name: Surjit Oconnor Jr, MD Signed: 05/16/2020 2:20 PM Workstation Name: [id number]
[2020-05-16] MEDS: HYDROmorphone 1 MG/1 ML INJ IV PRN ×2 (14:50→20:11)
--- NOTE | 2020-05-16 17:13 | Post Anesthesia Evaluation ---
- Post Anesthesia Evaluation Patient Participated: Yes Airway Patent: Yes Stable Respiratory Function: Yes Nausea/Vomiting: No Temp > 96.8F: Yes Pain Manageable: Yes Adequeate Hydration: Yes Anesthesia Complications: No Block Receding Appropriately: Not Applicable Patient on Ventilator: No
[2020-05-17] MEDS: SODIUM CHLORIDE 0.9% 1000 ML 1,000 ML IV SCH (04:06)
--- NOTE | 2020-05-17 07:10 | Progress Note ---
Assessment and Plan Assessment and Plan - Patient Problems (1) Obstructive jaundice Current Visit: Yes Status: Acute Plan to address problem: Secondary to the pancreatic mass. ERCP done and stent placed Postprocedure patient feels better Clear liquids started Patient can be discharged tomorrow morning (2) Abnormal LFTs Current Visit: Yes Status: Acute Plan to address problem: Possibly secondary to obstruction by the pancreatic mass. Will monitor liver enzymes. Should be improving after the ERCP CMP ordered (3) Hyperbilirubinemia Current Visit: Yes Status: Acute Plan to address problem: Secondary to the underlying obstruction by the pancreatic mass. We will continue to monitor bilirubin level. We await further evaluation by gastroenterology. Should improve with the ERCP Check CMP (4) Hyperkalemia Current Visit: Yes Status: Acute Plan to address problem: Patient has been given insulin and glucose, calcium gluconate, Kayexalate. Will monitor potassium level and will also monitor EKG. Improved (5) DVT prophylaxis Current Visit: Yes Status: Acute Plan to address problem: Patient placed on sequential compression device. (6) Full code status Current Visit: Yes Status: Acute Plan to address problem: Patient is a full code. Subjective Date of service: 05/16/20 Principal diagnosis: Obstructive jaundice Interval history: 50-year-old male with significant history of hypertension presenting to the emergency room today complaining of generalized abdominal pain. Symptoms has been ongoing for about 2 weeks. He denies any fever or chills. He has had some nausea but no vomiting. No diarrhea or constipation. He has had frequent urination but denies any dysuria or hematuria. He however indicates that his urine has been darker in color. Patient denies any sick contacts and no recent travel. Denies any contact with anyone with COVID-19. Work-up in the emergency room today reveals elevated liver enzymes, hyperbilirubinemia and hyperkalemia on the lab test. CT of the abdomen and pelvis reveals:1. Pancreatic head mass with secondary moderate biliary obstruction. Pancreatic adenocarcinoma is suspected until proven otherwise. [employer] Room Operator has been consulted by the ER physician. Patient be admitted with abdominal pain with underlying pancreatic mass with jaundice. 05/16/2020 Patient had ERCP and stent placement for relieving the obstructive jaundice Patient has pancreatic mass Patient can be discharged tomorrow Post ERCP procedure patient doing well has slight discomfort--abdominal Objective - Constitutional Vitals: Vital Signs - 12hr 05/16/20 05/16/20 05/16/20 19:39 20:00 20:11 Temperature 99.9 F H Pulse Rate 62 Pulse Rate [ 66 From Monitor] Respiratory 20 18 18 Rate Respiratory Rate [Abdomen] Blood Pressure 158/88 O2 Sat by Pulse 100 Oximetry 05/16/20 05/16/20 05/17/20 20:41 22:00 04:47 Temperature 99.0 F Pulse Rate 62 Pulse Rate [ From Monitor] Respiratory 18 20 Rate Respiratory 18 Rate [Abdomen] Blood Pressure 135/77 O2 Sat by Pulse 96 Oximetry General appearance: Present: no acute distress, well-nourished - EENT Eyes: PERRL, EOM intact ENT: hearing intact, clear oral mucosa Ears: bilateral: normal - Neck Neck: supple, normal ROM - Respiratory Respiratory effort: normal Respiratory: bilateral: CTA - Breasts Breasts: normal - Cardiovascular Rhythm: regular Heart Sounds: Present: S1 & S2. Absent: gallop, rub Extremities: pulses intact, No edema, normal color, Full ROM - Gastrointestinal General gastrointestinal: Present: soft, non-tender, non-distended, normal bowel sounds - Genitourinary Male genitourinary: normal - Integumentary Integumentary: clear, warm, dry - Musculoskeletal Musculoskeletal: 1, strength equal bilaterally - Neurologic Neurologic: moves all extremities - Psychiatric Psychiatric: memory intact, appropriate mood/affect, intact judgment & insight - Labs CBC & Chem 7: 05/16/20 06:00 05/16/20 06:00
--- NOTE | 2020-05-17 08:52 | Discharge Summary ---
Providers - Providers Date of Admission: 05/13/20 21:39 Date of discharge: 05/17/20 Attending physician: JORDAN RIDER 05/13/20 21:30 Consult to Physician [CONS] Routine Comment: Consulting Provider: ANJALI CHISHOLM Physician Instructions: Reason For Exam: obstrustive jaundice Primary care physician: FIRER GLOST KILN Hospitalization Condition: Critical Disposition: DC-30 STILL A PATIENT Exam - Constitutional Vitals: Temp Pulse Resp BP Pulse Ox 99.0 F 62 20 135/77 96 05/17/20 04:47 05/17/20 04:47 05/17/20 04:47 05/17/20 04:47 05/17/20 04:47 Plan Additional Instructions: Advised to see private oncologist and private GI per schedule. Avoid aspirin and NSAID group of medications next 2 to 4 weeks. If you have worsening symptoms contact MD or go to emergency room Follow up with: NAMAN GARZA MD [Primary Care Provider] - 7 Days ANJALI CHISHOLM MD [Staff Physician] - 7 Days TRISH GUO MD [Staff Physician] - 7 Days
[2020-05-17 12:39] VITALS: BP 132/83
--- NOTE | 2020-05-17 15:53 | Event Note ---
Date: 05/17/20 I spoke with pt's son, Chad, and advised him that pt has pancreatic cancer. Have contacted Dr. Leander Ugarte at [facility], and pt will f/u there.
== END 2020-05-17 15:55 | disposition home or self-care (01) | DRG 438 ==
LOC: ED 15:35 → 3A 21:39
PROVIDERS: ADMIT Internal Medicine Geriatric Medicine; ATTEND Internal Medicine
PROC: 0F798DZ Dilation of Common Bile Duct with Intraluminal Device, Via Natural or Artificial Opening Endoscopic (ICD-10-PCS; principal; 2020-05-16)
DX: K86.9 Disease of pancreas, unspecified (principal); K83.1 Obstruction of bile duct; E87.5 Hyperkalemia; R94.5 Abnormal results of liver function studies; E80.6 Other disorders of bilirubin metabolism; R19.09 Other intra-abdominal and pelvic swelling, mass and lump; I10 Essential (primary) hypertension; F17.210 Nicotine dependence, cigarettes, uncomplicated; Z20.822 Contact with and (suspected) exposure to COVID-19; Z79.899 Other long term (current) drug therapy
CPT/HCPCS: 36415; 74177; 74330; 80048; 80053; 80074; 80076; 80307; 81001; 82247; 82248; 82550; 82962; 83690; 85025; 85610; 86301; 93005; 96365; 96375; G0378; C1726; C2625; J1170; J1815; J2270; J2405; J2704; J3490; J7030; Q9967; U0003